=== PATIENT | female | born 1950 | race Caucasian/White ===

== ENCOUNTER 2022-04-23 12:58 | Outpatient (RCR) | payer OTHER, MEDICARE | END 2022-04-23 16:00 | disposition home or self-care (01) | LOC: WSPT 12:58 | DX: R26.81 Unsteadiness on feet (principal) ==

== ENCOUNTER → 2023-02-05 | Outpatient (CLI) | payer OTHER, MEDICARE ==
[~2023-02-05] MED LIST: FLEXERIL 1010 MG/TAB PO; PERCOCET 325 MG1 TA2 PO
== END ==
LOC: MHCPAIN 15:12
DX: M47.896 Other spondylosis, lumbar region (principal); M48.062 Spinal stenosis, lumbar region with neurogenic claudication
CPT/HCPCS: G0463

== ENCOUNTER → 2023-04-03 | Outpatient (CLI) | payer OTHER, MEDICARE | LOC: COL.RAD 13:54 | DX: M51.14 Intervertebral disc disorders with radiculopathy, thoracic region (principal); M51.16 Intervertebral disc disorders with radiculopathy, lumbar region; M43.16 Spondylolisthesis, lumbar region ==

== ENCOUNTER → 2023-04-03 | Outpatient (CLI) | payer OTHER, MEDICARE | LOC: MHCPAIN 12:52 | DX: M48.062 Spinal stenosis, lumbar region with neurogenic claudication (principal); M47.817 Spondylosis without myelopathy or radiculopathy, lumbosacral region; M16.0 Bilateral primary osteoarthritis of hip | CPT/HCPCS: G0463 ==

== ENCOUNTER → 2023-08-06 | Outpatient (CLI) | payer OTHER, MEDICARE | LOC: MC.RAD 14:20 | DX: Z12.31 Encounter for screening mammogram for malignant neoplasm of breast (principal) ==